=== PATIENT | male | born 2000 | race Two or more races ===

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

== ENCOUNTER → 2023-03-11 | Outpatient (CLI) | payer OTHER | LOC: M RAD 15:16 | PROVIDERS: ATTEND Physician Assistant | DX: N50.9 Disorder of male genital organs, unspecified (principal) ==